=== PATIENT | male | born 1975 | race Caucasian/White ===

== ENCOUNTER 2019-06-27 18:58 | Emergency (ER) | payer OTHER ==
[2019-06-27] MEDS ORDERED: Diphtheria,Pertussis(Acell),Tetanus Vaccine 0.5 ML SDV IM ONE (20:45)
[2019-06-27] MEDS ORDERED: cefTRIAXone 1 GM Vial IM ONE (20:45)
--- NOTE | 2019-06-27 20:51 | EDM.PDOC ---
ED HPI GENERAL MEDICAL PROBLEM - General Chief Complaint: Laceration Stated Complaint: LEFT HAND FINGER Time Seen by Provider: 06/27/19 19:00 Source of Information: Reports: Patient History Limitations: Reports: No Limitations - History of Present Illness INITIAL COMMENTS - FREE TEXT/NARRATIVE: Was using utility knife to repair window when it slipped and he cut off the tip of his left index finger pt is on aspirin so had persistent bleeding Came in with finger on tourniquet has pain in the tip of the finger Location: Reports: Upper Extremity, Left Quality: Reports: Dull Context: Reports: Trauma 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 left pointer finger Pain Score (Numeric/FACES): 6 - Related Data Allergies Allergy/AdvReac Type Severity Reaction Status Date / Time No Known Allergies Allergy Verified 06/27/19 19:16 Home Meds: Home Meds Aspirin [Halfprin] 81 mg PO DAILY 06/27/19 [History] Cephalexin [Keflex] 500 mg PO TID #15 capsule 06/27/19 [Rx] Hydrocodone/Acetaminophen [Berea 5-325 Tablet] 1 each PO Q8HR #6 tablet [Rx] Omeprazole 20 mg PO DAILY 06/27/19 [History] atorvaSTATin [Lipitor] 80 mg PO BEDTIME 06/27/19 [History] Past Medical History Cardiovascular History: Reports: High Cholesterol, Hypertension Hematologic History: Reports: Other (See Below) Other Hematologic History: on 81mg of asprin - Past Surgical History Cardiovascular Surgical History: Reports: Other (See Below) Other Cardiovascular Surgeries/Procedures: Stents placed Musculoskeletal Surgical History: Reports: Other (See Below) Other Musculoskeletal Surgeries/Procedures:: surery on the knee and collar bone Social & Family History - Family History Family Medical History: Noncontributory - Tobacco Use Smoking Status *Q: Never Smoker - Caffeine Use Caffeine Use: Reports: Coffee, Soda - Recreational Drug Use Recreational Drug Use: No ED ROS GENERAL - Review of Systems Review Of Systems: Comprehensive ROS is negative, except as noted in HPI. ED EXAM, SKIN/RASH Exam: See Below Text/Narrative:: left index finger with tip cut off about 0.5x0.5 in diameter , nail also cut , no attachement to the finger noted Exam Limited By: No Limitations General Appearance: Alert, WD/WN, Mild Distress Ears: Normal External Exam Head: Atraumatic Neck: Supple, Non-Tender Cardiovascular: Regular Rate, Rhythm Extremities: Normal Capillary Refill Neurological: Alert, Oriented Location, Skin: Upper Extremity, Left (laceration of left index finger as noted : 0.5x 0.5cm , clean open area ) ED SKIN PROCEDURES - Laceration/Wound Repair Left Distal Digit - 2nd (Index) Appearance: Superficial, Clean Distal NVT: Neuro & Vascular Intact Anesthetic Type: Digital Local Anesthesia - Lidocaine (Xylocaine): 2% with EPI Skin Prep: Chlorhexidine (Hibiciens), Saline Closed with: Sutures Lac/Wound length In cm: 1 (defect in tip of finger) Suture Size: 4-0 # of Sutures: 3 (absorbable) Suture Type: Prolene Sterile Dressing Applied: Nurse Tetanus Status Addressed: Yes Complication Description: Bleeding from aspirin use. Gel foam applied to stop bleeding , then vessels tied. Pressure tubed gauze dressing applied Course - Vital Signs Last Recorded V/S: Last Vital Signs Temp 37.1 C 06/27/19 18:58 Pulse 78 06/27/19 18:58 Resp 18 06/27/19 18:58 BP 140/74 06/27/19 20:17 Pulse Ox 97 06/27/19 18:58 - Orders/Labs/Meds Orders: Active Orders 24 hr Category Date Time Status Vaccines to be Administered [RC] PER UNIT ROUTINE Care 06/27/19 20:45 Active Meds: Medications Discontinued Medications Generic Name Dose Route Start Last Admin Trade Name Freq PRN Reason Stop Dose Admin Ceftriaxone Sodium 1 gm 06/27/19 20:45 06/27/19 20:55 Rocephin IM 06/27/19 20:46 1 gm ONETIME ONE Administration Diphtheria/Tetanus/Acell Pertussis 0.5 ml 06/27/19 20:45 06/27/19 20:55 Adacel IM 06/27/19 20:46 0.5 ml .ONCE ONE Administration - Re-Assessments/Exams Free Text/Narrative Re-Assessment/Exam: 06/27/19 21:17 repair done , wound dressing and instructions given Departure - Departure Time of Disposition: 21:10 Disposition: Home, Self-Care 01 Condition: Fair Clinical Impression: Laceration of finger of left hand with damage to nail - Discharge Information *PRESCRIPTION DRUG MONITORING PROGRAM REVIEWED*: Not Applicable *COPY OF PRESCRIPTION DRUG MONITORING REPORT IN PATIENT NILA: Not Applicable Prescriptions: Hydrocodone/Acetaminophen [[place] 5-325 Tablet] 1 each PO Q8HR #6 tablet Cephalexin [Keflex] 500 mg PO TID #15 capsule Instructions: Ceftriaxone injection, VIS, Diphtheria, Tetanus, and Pertussis ( DTaP) - CDC (09/04/2006), Laceration Care, Adult, [id number] Referrals: PCP,None [Primary Care Provider] - Forms: ED Department Discharge Care Plan Goals: Keep dressing on for two days. Return to clinic or ER for dressing change, tell the nurse that the dressing needs to be soaked off with normal saline. Keep area clean and dry. Take prescriptions as ordered. Follow up 06/29/19 for dressing change. Sepsis Event Note - Evaluation Sepsis Screening Result: No Definite Risk - Focused Exam Vital Signs: Vital Signs Temp Pulse Resp BP Pulse Ox 06/27/19 20:17 140/74 06/27/19 18:58 37.1 C 78 18 155/125 H 97 Date Exam was Performed: 06/27/19 Time Exam was Performed: 21:05 - My Orders Last 24 Hours: My Active Orders 06/27/19 20:45 Vaccines to be Administered [RC] PER UNIT ROUTINE - Assessment/Plan Last 24 Hours: My Active Orders 06/27/19 20:45 Vaccines to be Administered [RC] PER UNIT ROUTINE
== END 2019-06-27 21:15 | disposition home or self-care (01) ==
LOC: FB.ED 18:58
DX: S61.311A Laceration without foreign body of left index finger with damage to nail, initial encounter (principal); E78.00 Pure hypercholesterolemia, unspecified; I10 Essential (primary) hypertension; Z79.82 Long term (current) use of aspirin; Z79.899 Other long term (current) drug therapy; Z23 Encounter for immunization; W26.0XXA Contact with knife, initial encounter
CPT/HCPCS: 12001; 90471; 90715; 96372; 99283; J0696